=== PATIENT | male | born 1950 | race Caucasian/White ===

== ENCOUNTER 2017-04-11 10:56 | Inpatient (IN) | payer OTHER ==
[~2017-04-11] VITALS: Ht 175.3 cm; Wt 93.9 kg
[2017-04-11 13:45] LABS: PLATELET COUNT 189 x10^3mcL (130-400)
[2017-04-11 13:46] LABS: BASOPHIL % 0 % (0-2); RED CELL DISTRIBUTION WIDTH 14.7 % (11.5-14.5)
[2017-04-11 14:33] LABS: CALCIUM 8.9 mg/dL (8.5-10.1); CARBON DIOXIDE 25.1 mmol/L (21-32); CHLORIDE SERUM 103 mmol/L (98-107); CREATININE SERUM 0.6 mg/dL (0.7-1.3); GFR1 > 60 mL/min; GLUCOSE SERUM 103 mg/dL (74-106); POTASSIUM SERUM 3.6 mmol/L (3.5-5.1); SODIUM SERUM 139 mmol/L (136-145)
[2017-04-11 14:38] LABS: ALBUMIN 3.9 g/dL (3.4-5.0); ALKALINE PHOSPHATASE 71 U/L (46-116); ALT/SGPT 31 U/L (16-63); AST/SGOT 17 U/L (15-37); BILIRUBIN TOTAL 1.37 mg/dL (0.20-1.00); LIPASE 266 IU/L (73-393); TOTAL PROTEIN, SERUM 7.4 g/dL (6.4-8.2)
[2017-04-11] MEDS ORDERED: POTASSIUM CHLO10 MEQ (15:05)
[2017-04-11] MEDS ORDERED: FRESHKOTE15 ML (15:05)
[2017-04-11] MEDS ORDERED: LOSARTAN POTASS25 M1 (15:05)
[2017-04-11 16:32] VITALS: BP 133/81
[2017-04-11 17:05] LABS: T3 TOTAL 1.02 ng/mL
[2017-04-11 17:10] LABS: FREE T4 1.11 ng/dL (0.76-1.46); FREE THYROXINE INDEX 2.6 ug/dL (1.4-4.5); T4(THYROXINE) 6.7 ug/dL (4.7-13.3)
[2017-04-11 17:58] LABS: MAGNESIUM 1.9 mg/dL (1.8-2.4); PHOSPHOROUS 3.4 mg/dL (2.5-4.9)
[2017-04-11 17:59] LABS: CHOLESTEROL/HDL RATIO 2.7
[2017-04-11 23:16] VITALS: BP 128/71
[2017-04-12 07:19] VITALS: BP 141/88
[2017-04-12 07:56] LABS: BASOPHIL % 0.1 % (0-2); PLATELET COUNT 181 x10^3mcL (130-400)
[2017-04-12 07:57] LABS: RED CELL DISTRIBUTION WIDTH 14.8 % (11.5-14.5)
[2017-04-12 08:52] LABS: CALCIUM 8.2 mg/dL (8.5-10.1); CARBON DIOXIDE 24.4 mmol/L (21-32); CHLORIDE SERUM 106 mmol/L (98-107); CREATININE SERUM 0.8 mg/dL (0.7-1.3); GFR1 > 60 mL/min; GLUCOSE SERUM 118 mg/dL (74-106); PHOSPHOROUS 3.4 mg/dL (2.5-4.9); SODIUM SERUM 140 mmol/L (136-145)
[2017-04-12] MEDS ORDERED: XALATAN2.5 ML OU (09:28)
[2017-04-12 09:44] VITALS: BP 141/88
[2017-04-12 10:12] VITALS: BP 140/84
[2017-04-13 05:41] VITALS: BP 148/91
[2017-04-13] MEDS ORDERED: COL100 PO (06:38)
[2017-04-13] MEDS ORDERED: NOR10T PO (06:39)
[2017-04-13 07:09] LABS: BASOPHIL % 0.3 % (0-2); PLATELET COUNT 189 x10^3mcL (130-400)
[2017-04-13 07:12] LABS: RED CELL DISTRIBUTION WIDTH 15.3 % (11.5-14.5)
[2017-04-13 07:31] LABS: CALCIUM 8.2 mg/dL (8.5-10.1); CARBON DIOXIDE 25.3 mmol/L (21-32); CHLORIDE SERUM 105 mmol/L (98-107); CREATININE SERUM 0.7 mg/dL (0.7-1.3); GFR1 > 60 mL/min; GLUCOSE SERUM 105 mg/dL (74-106); MAGNESIUM 1.9 mg/dL (1.8-2.4); PHOSPHOROUS 2.5 mg/dL (2.5-4.9); POTASSIUM SERUM 3.7 mmol/L (3.5-5.1); SODIUM SERUM 142 mmol/L (136-145)
[2017-04-13 09:02] VITALS: BP 143/88
[2017-04-13 09:52] VITALS: BP 143/88
[2017-04-13 10:14] VITALS: BP 143/88
[2017-04-13 10:15] VITALS: BP 154/83
== END 2017-04-13 12:11 | disposition home or self-care (01) | DRG 341 ==
LOC: ED 10:56 → DU 15:30 → MU 04-12 17:06
PROVIDERS: Emergency Medicine; Surgery; ADMIT Family Medicine
PROC: 0DTJ4ZZ Resection of Appendix, Percutaneous Endoscopic Approach (ICD-10-PCS; principal; 2017-04-11 17:00)
DX: K35.80 Unspecified acute appendicitis (principal); N17.0 Acute kidney failure with tubular necrosis; J45.909 Unspecified asthma, uncomplicated; I10 Essential (primary) hypertension; K57.90 Diverticulosis of intestine, part unspecified, without perforation or abscess without bleeding; E78.5 Hyperlipidemia, unspecified; E66.9 Obesity, unspecified; E83.51 Hypocalcemia; Z68.30 Body mass index [BMI] 30.0-30.9, adult; Z82.49 Family history of ischemic heart disease and other diseases of the circulatory system
CPT/HCPCS: 84439; J0330; J1170; J2060; J2270; J2405; J2543; J2704; J2710; J3010; J3490; J7030; J7120; J7613